=== PATIENT | female | born 1965 | race Caucasian/White ===

== ENCOUNTER 2016-11-07 17:25 | Emergency (ER) | payer MEDICARE, MEDICAID ==
--- NOTE | 2016-11-07 18:26 | ED Physician Chart ---
Chief Complaint/HPI - Patient Information Date Seen:: 11/07/16 Time Seen:: 18:10 Chief Complaint:: bleeding the left ear History of Present Illness:: About 10:00 staff at the [id number] stuck a Q-tip in the patient's left external auditory canal trying to clean the left ear. Bleeding from the left ear started right afterwards and continues. Patient's had no recent upper respiratory tract infection or cough Allergies:: Allergies Allergy/AdvReac Type Severity Reaction Status Date / Time No Known Allergies Allergy Verified 11/07/16 17:48 Vitals:: Vital Signs - 8 hr 11/07/16 17:25 Temp 97.9 F HR 63 RR 16 BP 110/70 O2 Sat % 97 Historian:: Other (care provider) Review:: Nurse's Note Reviewed Review of Systems - Review of Systems General/Constitutional: No fever, No chills Skin: No skin lesions Head: No headache Eyes: No loss of vision ENT: Other (see history) Neck: No neck pain, No swelling Cardio Vascular: No chest pain Pulmonary: No SOB, No cough GI: No nausea, No vomiting G/U: No dysuria, No frequency Musculoskeletal: No bone or joint pain, No back pain Endocrine: No polyuria, No polydipsia Psychiatric: No depression Hematopoietic: No bruising Allergic/Immuno: No urticaria Neurological: No syncope Past Medical History - Past Medical History Past Medical History: Other (mental retardation; Down syndrome; heart murmur; anxiety) Social History: Non Smoker, Care Facility Surgical History: None Psychiatricy History: Other (mental retardation) Family Medical History - Family Member Mother History Unknown: Yes Living Status: Still Living Physical Exam - Physical Examination General/Constitutional: Well-developed, well-nourished, Alert Head: Atraumatic Eyes: Lids, conjuctiva normal Skin: Nl inspection, No rash ENMT: External ears, nose nl, Nasal exam nl Other ENMT comments:: Blood in the left external auditory canal Neck: No nuchal rigidity Respiratory: Nl effort/Exclusion, Clear to Auscultation, No Wheeze/Rhonchi/Rales Cardio Vascular: RRR GI: No tenderness/rebounding/guarding, No organomegaly : No CVA tenderness Extremities: No tenderness or effusion Neuro/Psych: No focal deficits Assessment - Assessment General Assessment: The patient could have a perforated left tympanic membrane or an abrasion of the left external auditory canal or could have both. Care provider instructed not to have anyone stick a Q-tip in the patient's left external auditory canal. - Procedures Procedures:: Q-tip used to gently clean patient's left external auditory canal. Near the entrance to the canal a small amount of apparent cotton was present which was removed. After cleaning of a small amount of blood and cerumen was noted in the left external auditory canal. The left tympanic membrane was not visualized. After the blood was removed there was no further bleeding. ED Septic Shock - . Is Septic Shock (SBP<90, OR Lactate>4 mmol\L) present?: No - <6hrs of presentation: Vital Signs: Vital Signs - 8 hr 11/07/16 17:25 Temp 97.9 F HR 63 RR 16 BP 110/70 O2 Sat % 97 Reassessment (Disposition) - Reassessment Reassessment Condition:: Improved - Diagnosis Diagnosis:: Abrasion left external auditory canal - Aftercare/Follow up Instructions Aftercare/Follow-Up Instructions:: Refer to Discharge Instructions Medication Prescribed:: Amoxicillin 500 mg 3 times a day for 10 days - Patient Disposition Discharge/Transfer:: Home Condition at Disposition:: Stable, Improved
== END 2016-11-07 19:00 | disposition home or self-care (01) ==
LOC: ER 17:25
DX: S00.412A Abrasion of left ear, initial encounter (principal); X58.XXXA Exposure to other specified factors, initial encounter; Y93.89 Activity, other specified; Y92.89 Other specified places as the place of occurrence of the external cause; Y99.8 Other external cause status
CPT/HCPCS: Z7502